=== PATIENT | female | born 2000 | race Caucasian/White ===

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

== ENCOUNTER → 2021-10-02 | Outpatient (CLI) | payer BC, OTHER ==
[2021-10-02 14:16] LABS: BASO % 0.8 % (0.0-1.0); EOS % 0.8 % (1.0-4.0); HEMATOCRIT 39.7 % (37.0-47.0); LYMPH # 2.3 10*3/uL (1.3-4.4); LYMPH % 42.6 % (27.0-41.0); MEAN CELL VOLUME 86.7 fl (81.0-99.0); MEAN CORPUSCULAR HGB 30.1 pg (27.0-31.0); MEAN CORPUSCULAR HGB CONC 34.8 g/dl (33.0-37.0); MEAN PLATELET VOLUME 10.3 fl (9.6-12.3); MONO # 0.3 10*3/uL (0.1-1.0); MONO % 5.6 % (3.0-9.0); NEUT # 2.7 10*3/uL (2.3-7.9); PLATELET COUNT AUTOMATED 291 10*3/uL (130-400); RED BLOOD COUNT 4.58 10*6/uL (4.10-5.10); RED CELL DISTRI WIDTH 12.1 % (0-14.5); WHITE BLOOD COUNT 5.3 10*3/uL (4.8-10.8)
[2021-10-02 14:25] LABS: URINE AMPHETAMINES < 1000 (1000ng/ml); URINE BARBITURATES < 200 (200ng/ml); URINE BENZODIAZEPINES < 200 (200ng/ml); URINE CANNABINOIDS (THC) < 50 (50ng/ml); URINE COCAINE < 300 (300ng/ml); URINE METHADONE < 300 (300ng/ml); URINE OPIATES < 300 (300ng/ml)
[2021-10-02 14:35] LABS: URINE PHENCYCLIDINE < 25 (25ng/ml)
[2021-10-02 14:44] LABS: ALKALINE PHOSPHATASE 78 U/L (45-117); BUN 9 mg/dl (7-24); CHLORIDE 108 mmol/L (98-107); CREATININE 0.81 mg/dL (0.55-1.02); POTASSIUM 3.5 mmol/L (3.5-5.1); SGOT/AST 17 IU/L (3-35); SGPT/ALT 34 U/L (12-78); SODIUM 137 mmol/L (136-145); TOTAL PROTEIN 7.8 gm/dL (6.4-8.2)
[2021-10-09 11:08] LABS: ALTERNARIA ALTERNATA, IGE <0.10 kU/L (Class 0); AMERICAN ELM, IGE <0.10 kU/L (Class 0); ASPERGILLUS FUMIGATU, IGE <0.10 kU/L (Class 0); BERMUDA GRASS, IGE <0.10 kU/L (Class 0); BIRCH, COMMON SILVER IGE <0.10 kU/L (Class 0); CLADOSPORIUM HERBARU, IGE <0.10 kU/L (Class 0); D FARINAE MITE <0.10 kU/L (Class 0); D PTERONYSSINUS <0.10 kU/L (Class 0); DOG DANDER, IGE <0.10 kU/L (Class 0); MAPLE LEAF SYCAMORE, IGE <0.10 kU/L (Class 0); MAPLE/BOX ELDER, IGE <0.10 kU/L (Class 0); MOUSE URINE IGE <0.10 kU/L (Class 0); PENICILLIUM CHRYSOGENUM, IGE <0.10 kU/L (Class 0); ROUGH PIGWEED, IGE <0.10 kU/L (Class 0); SHEEP SORREL (DOCK), IGE <0.10 kU/L (Class 0); SHORT RAGWEED, IGE <0.10 kU/L (Class 0); TIMOTHY, IGE <0.10 kU/L (Class 0); WALNUT TREE, IGE <0.10 kU/L (Class 0); WHITE ASH, IGE <0.10 kU/L (Class 0); WHITE MULBERRY, IGE <0.10 kU/L (Class 0); WHITE OAK, IGE <0.10 kU/L (Class 0)
[2021-10-10 16:08] LABS: CORN, IGE <0.10 kU/L (Class 0); MILK (COW), IGE <0.10 kU/L (Class 0); PEANUT, IGE <0.10 kU/L (Class 0); SOYBEAN, IGE <0.10 kU/L (Class 0); WHEAT, IGE <0.10 kU/L (Class 0)
== END | disposition home or self-care (01) ==
LOC: LAB 13:18
PROVIDERS: ATTEND Pediatrics
DX: T78.40XA Allergy, unspecified, initial encounter (principal); E55.9 Vitamin D deficiency, unspecified; J02.9 Acute pharyngitis, unspecified; D64.9 Anemia, unspecified; X58.XXXA Exposure to other specified factors, initial encounter

== ENCOUNTER → 2021-10-18 | Outpatient (CLI) | payer BC, OTHER | END | disposition home or self-care (01) | LOC: LAB 16:30 | PROVIDERS: ATTEND Pediatrics | DX: N39.0 Urinary tract infection, site not specified (principal) ==

== ENCOUNTER → 2021-10-19 | Outpatient (CLI) | payer BC, OTHER | END | disposition home or self-care (01) | LOC: US 02:05 | PROVIDERS: ATTEND Pediatrics | DX: N83.292 Other ovarian cyst, left side (principal); R16.1 Splenomegaly, not elsewhere classified; N85.4 Malposition of uterus; N39.0 Urinary tract infection, site not specified ==

== ENCOUNTER → 2022-03-08 | Outpatient (CLI) | payer BC, OTHER | END | disposition home or self-care (01) | LOC: RAD 14:15 | PROVIDERS: ATTEND Pediatrics | DX: M47.817 Spondylosis without myelopathy or radiculopathy, lumbosacral region (principal); M54.59 Other low back pain ==

== ENCOUNTER → 2022-07-02 | Outpatient (CLI) | payer BC, OTHER | END | disposition home or self-care (01) | LOC: LAB 17:00 | PROVIDERS: ATTEND Internal Medicine Clinical Cardiac Electrophysiology | DX: Z86.14 Personal history of Methicillin resistant Staphylococcus aureus infection (principal) ==

== ENCOUNTER → 2023-06-26 | Outpatient (CLI) | payer BC, OTHER ==
[2023-06-26 17:29] LABS: BASO % 0.4 % (0.0-1.0); EOS # 0.1 10*3/uL (0.0-0.4); EOS % 1.2 % (1.0-4.0); HEMATOCRIT 41.1 % (37.0-47.0); LYMPH # 2.7 10*3/uL (1.3-4.4); LYMPH % 36.9 % (27.0-41.0); MEAN CELL VOLUME 91.7 fl (81.0-99.0); MEAN CORPUSCULAR HGB 30.6 pg (27.0-31.0); MEAN CORPUSCULAR HGB CONC 33.3 g/dl (33.0-37.0); MONO # 0.3 10*3/uL (0.1-1.0); MONO % 4.5 % (3.0-9.0); NEUT # 4.1 10*3/uL (2.3-7.9); NEUT % 56.9 % (47.0-73.0); PLATELET COUNT AUTOMATED 304 10*3/uL (130-400); RED BLOOD COUNT 4.48 10*6/uL (4.10-5.10); RED CELL DISTRI WIDTH 12.3 % (0-14.5); WHITE BLOOD COUNT 7.3 10*3/uL (4.8-10.8)
[2023-06-26 17:56] LABS: VITAMIN D, 25-HYDROXY 28.1 ng/mL (30-100)
[2023-06-26 18:05] LABS: ALKALINE PHOSPHATASE 58 U/L (46-116); BUN 9 mg/dl (9-23); CHLORIDE 105 mmol/L (98-107); CHOLESTEROL 135 mg/dL (<200); LDL CHOLESTEROL 81 mg/dL (9-159); POTASSIUM 3.8 mmol/L (3.4-5.1); SGPT/ALT 16 U/L (5-49); TOTAL PROTEIN 7.6 gm/dL (6.0-8.0); TRIGLYCERIDES 87 mg/dl (<150)
[2023-06-27 12:07] LABS: ANTI-STREPTOLYSIN O AB 323.1 IU/mL (0.0-200.0)
[2023-06-28 04:07] LABS: LUPUS DRVVT 39.5 sec (0.0-47.0); PTT-LA MIX 35.4 sec (0.0-40.5)
[2023-06-30 16:07] LABS: LUPUS REFLEX INTERPRETATION Comment: (.)
[2023-07-02 12:08] LABS: CODFISH, IGE <0.10 kU/L (Class 0); EGG WHITE, IGE <0.10 kU/L (Class 0); MILK (COW), IGE <0.10 kU/L (Class 0); PEANUT, IGE <0.10 kU/L (Class 0); SOYBEAN, IGE <0.10 kU/L (Class 0); WHEAT, IGE <0.10 kU/L (Class 0)
[2023-07-03 01:06] LABS: ALTERNARIA ALTERNATA, IGE <0.10 kU/L (Class 0); AMERICAN ELM, IGE <0.10 kU/L (Class 0); ASPERGILLUS FUMIGATU, IGE <0.10 kU/L (Class 0); BERMUDA GRASS, IGE <0.10 kU/L (Class 0); BIRCH, COMMON SILVER IGE <0.10 kU/L (Class 0); CLADOSPORIUM HERBARU, IGE <0.10 kU/L (Class 0); D FARINAE MITE <0.10 kU/L (Class 0); D PTERONYSSINUS <0.10 kU/L (Class 0); DOG DANDER, IGE <0.10 kU/L (Class 0); MAPLE LEAF SYCAMORE, IGE <0.10 kU/L (Class 0); MAPLE/BOX ELDER, IGE <0.10 kU/L (Class 0); MOUSE URINE IGE <0.10 kU/L (Class 0); PENICILLIUM CHRYSOGENUM, IGE <0.10 kU/L (Class 0); ROUGH PIGWEED, IGE <0.10 kU/L (Class 0); SHEEP SORREL (DOCK), IGE <0.10 kU/L (Class 0); SHORT RAGWEED, IGE <0.10 kU/L (Class 0); TIMOTHY, IGE <0.10 kU/L (Class 0); WALNUT TREE, IGE <0.10 kU/L (Class 0); WHITE ASH, IGE <0.10 kU/L (Class 0); WHITE MULBERRY, IGE <0.10 kU/L (Class 0); WHITE OAK, IGE <0.10 kU/L (Class 0)
== END | disposition home or self-care (01) ==
LOC: LAB 17:02
PROVIDERS: ATTEND Pediatrics
DX: T78.40XA Allergy, unspecified, initial encounter (principal); R53.83 Other fatigue; E55.9 Vitamin D deficiency, unspecified; D64.9 Anemia, unspecified; X58.XXXA Exposure to other specified factors, initial encounter

== ENCOUNTER → 2023-08-19 | Outpatient (CLI) | payer BC, OTHER | END | disposition home or self-care (01) | LOC: CARD 15:39 | PROVIDERS: ATTEND Pediatrics | DX: R60.9 Edema, unspecified (principal) ==

== ENCOUNTER → 2023-09-16 | Outpatient (CLI) | payer BC, OTHER | END | disposition home or self-care (01) | LOC: CARD 00:20 | PROVIDERS: ATTEND Family Medicine | DX: R00.2 Palpitations (principal); R42 Dizziness and giddiness ==

== ENCOUNTER → 2023-11-11 | Outpatient (CLI) | payer BC, OTHER ==
[2023-11-11 13:33] LABS: HEMATOCRIT 39.1 % (37.0-47.0); MEAN CELL VOLUME 85.9 fl (81.0-99.0); MEAN CORPUSCULAR HGB 30.1 pg (27.0-31.0); MEAN PLATELET VOLUME 10.3 fl (9.6-12.3); RED BLOOD COUNT 4.55 10*6/uL (4.10-5.10); RED CELL DISTRI WIDTH 12.2 % (0-14.5); WHITE BLOOD COUNT 6.2 10*3/uL (4.8-10.8)
[2023-11-11 14:10] LABS: VITAMIN D, 25-HYDROXY 32.5 ng/mL (30-100)
[2023-11-11 14:11] LABS: ALKALINE PHOSPHATASE 64 U/L (46-116); BUN 12 mg/dl (9-23); CHLORIDE 106 mmol/L (98-107); CHOLESTEROL 119 mg/dL (<200); FREE T4 0.88 ng/dl (0.89-1.76); LDL CHOLESTEROL 65 mg/dL (9-159); POTASSIUM 3.9 mmol/L (3.4-5.1); SGPT/ALT 11 U/L (5-49); TOTAL PROTEIN 7.6 gm/dL (6.0-8.0); TRIGLYCERIDES 115 mg/dl (<150)
== END | disposition home or self-care (01) ==
LOC: LAB 12:59
PROVIDERS: ATTEND Family Medicine
DX: E78.00 Pure hypercholesterolemia, unspecified (principal); L68.0 Hirsutism; G43.909 Migraine, unspecified, not intractable, without status migrainosus; R63.4 Abnormal weight loss; E74.9 Disorder of carbohydrate metabolism, unspecified; E55.9 Vitamin D deficiency, unspecified

== ENCOUNTER → 2024-01-27 | Outpatient (CLI) | payer BC, OTHER | END | disposition home or self-care (01) | LOC: MAMMO 14:00 | PROVIDERS: ATTEND Family Medicine | DX: N60.11 Diffuse cystic mastopathy of right breast (principal) ==

== ENCOUNTER → 2024-10-14 | Outpatient (CLI) | payer BC, OTHER | END | disposition home or self-care (01) | LOC: LAB 15:20 | PROVIDERS: ATTEND Family Medicine | DX: Z32.00 Encounter for pregnancy test, result unknown (principal) ==

== ENCOUNTER → 2024-10-16 | Outpatient (CLI) | payer BC, OTHER | END | disposition home or self-care (01) | LOC: LAB 00:47 | PROVIDERS: ATTEND Family Medicine | DX: Z32.00 Encounter for pregnancy test, result unknown (principal) ==

== ENCOUNTER → 2024-11-01 | Outpatient (CLI) | payer BC, OTHER | END | disposition home or self-care (01) | LOC: LAB 12:41 | PROVIDERS: ATTEND Family Medicine | DX: Z32.01 Encounter for pregnancy test, result positive (principal) ==

== ENCOUNTER 2025-05-22 19:14 | Emergency (ER) | payer BC, OTHER | END 2025-05-22 21:13 | disposition home or self-care (01) | LOC: ED 19:14 | DX: O26.893 Other specified pregnancy related conditions, third trimester (principal); Z88.8 Allergy status to other drugs, medicaments and biological substances; Z3A.35 35 weeks gestation of pregnancy; W01.0XXA Fall on same level from slipping, tripping and stumbling without subsequent striking against object, initial encounter; Y93.89 Activity, other specified; Y92.89 Other specified places as the place of occurrence of the external cause; Y99.8 Other external cause status ==